=== PATIENT | male | born 1985 | race Caucasian/White ===

== ENCOUNTER 2024-11-24 11:09 | Inpatient (IN) | payer OTHER ==
[2024-11-24 11:31] VITALS: BMI 22.7
[2024-11-24] MEDS ORDERED: MAGNESIUM HYDROX 2400MG/30ML ORAL SUSPENSION 30 ML CUP PO PRN (11:45)
[2024-11-24] MEDS ORDERED: BISMUTH SUBSALICYLATE 524 MG/30 ML PO PRN (11:45)
[2024-11-24] MEDS ORDERED: NALOXONE (NARCAN) HCL 4 MG/0.1 ML SPRAY NS PRN (11:45)
[2024-11-24] MEDS ORDERED: P-EPHED 60MG/TRIPROLIDI 2.5MG TABLET PO PRN (11:45)
[2024-11-24] MEDS ORDERED: BENZOCAINE/MENTHOL (CHLORASEPTIC ) LOZENGE MM PRN (11:45)
[2024-11-24] MEDS ORDERED: DICYCLOMINE HCL 10 MG CAPSULE PO PRN (11:45)
[2024-11-24] MEDS ORDERED: IBUPROFEN 400 MG TABLET (FP) PO PRN (11:45)
[2024-11-24] MEDS ORDERED: LOPERAMIDE HCL 2 MG CAPSULE PO PRN (11:45)
[2024-11-24] MEDS ORDERED: guaiFENesin 600 MG TABLET.ER (FP) PO PRN (11:45)
[2024-11-24] MEDS ORDERED: MAG HYDROX/AL HYDROX/SIMETH 30 ML UNIT-DOSE CUP PO PRN (11:45)
[2024-11-24] MEDS ORDERED: BENZONATATE 200 MG CAPSULE PO PRN (11:45)
[2024-11-24] MEDS ORDERED: hydrOXYzine PAMOATE 25 MG CAPSULE (FP) PO PRN (11:45)
[2024-11-24] MEDS ORDERED: POLYETHYLENE GLYCOL (HEALTHYLAX) 3350 17 GM PACKET PO PRN (11:45)
[2024-11-24] MEDS: propRANOLol HCL 10 MG TABLET PO ONE (12:31)
[2024-11-24] MEDS: TRIMETHOBENZAMIDE HCL 200MG/2ML INJ IM ONE (12:31)
[2024-11-24] MEDS: BUPRENORPHINE/NALOXONE 4 MG/1 MG FILM PACKET SL SCH (12:31)
[2024-11-24] MEDS ORDERED: ACETAMINOPHEN 325 MG TABLET (FP) ONE (12:41)
[2024-11-24] MEDS: ACETAMINOPHEN 325 MG TABLET (FP) PO PRN (12:56)
[2024-11-24] MEDS: ESCITALOPRAM OXALATE 10 MG TABLET PO SCH (15:04)
[2024-11-24] MEDS: METHOCARBAMOL 500 MG TABLET PO PRN (17:23)
[2024-11-24] MEDS: IBUPROFEN 600 MG TABLET (FP) PO PRN (17:23)
[2024-11-24] MEDS: THIAMINE 100 MG TABLET PO SCH (21:56)
[2024-11-24] MEDS: diazePAM 5 MG TABLET PO PRN (21:57)
[2024-11-24] MEDS: MELATONIN 5 MG TABLETS PO SCH (22:00)
[2024-11-25] MEDS: ONDANSETRON *ODT* 4 MG TABLET SL PRN (03:50)
[2024-11-25] MEDS: BUPRENORPHINE/NALOXONE 8 MG/2 MG FILM PACKET SL ONE (05:49)
[2024-11-25 09:35] LABS: POTASSIUM 3.6 mmol/L (3.5-5.1)
[2024-11-25 09:39] LABS: HEMATOCRIT 37.4 % (35.4-49); HEMOGLOBIN 12.5 GM/dL (11.7-16.9); MCH 29.5 pg (25.7-33.7); MCHC 33.5 g/dl (32.0-35.9); MEAN CELL VOLUME 88.1 fl (80-96); MEAN PLT VOLUME 10.3 fl (7.5-11.1); PLATELET COUNT 219 10^3/uL (134-434); RBC 4.25 M/mm3 (4.00-5.60); RDW 13.1 % (11.9-15.9)
[2024-11-25 09:40] LABS: ALBUMIN 3.9 g/dl (3.4-5.0)
[2024-11-25 09:41] LABS: BLOOD UREA NITROGEN 21.5 mg/dL (7-18); CALCIUM 9.6 mg/dL (8.5-10.1)
[2024-11-25 09:43] LABS: CREATININE 1.2 mg/dL (0.55-1.3)
[2024-11-25 09:44] LABS: BILIRUBIN,TOTAL 0.8 mg/dL (0.2-1)
[2024-11-25] MEDS: PRENATAL VITAMINS W/ FOLIC ACID TABLET (FP) PO SCH (09:44)
[2024-11-25 09:45] LABS: TOT PROT 7.3 g/dl (6.4-8.2)
[2024-11-25] MEDS: BUPRENORPHINE/NALOXONE 8 MG/2 MG FILM PACKET SL SCH (13:09)
[2024-11-26] MEDS: BUPRENORPHINE/NALOXONE 8 MG/2 MG FILM PACKET SL SCH (06:01)
[2024-11-26] MEDS: LOSARTAN POTASSIUM 50 MG TABLET PO SCH (13:26)
[2024-11-26] MEDS: NALOXONE (NYS OPIOID OVERDOSE PROGRAM) 4 MG/0.1 ML SPRAY NS SCH (13:48)
[2024-11-26] MEDS: cloNIDine HCL 0.1 MG TABLET PO ONE (22:19)
[2024-11-27] MEDS ORDERED: BUPRENORPHINE/NALOXONE 8 MG/2 MG FILM PACKET SL SCH (05:00)
[2024-11-27] MEDS: BUPRENORPHINE/NALOXONE 8 MG/2 MG FILM PACKET SL SCH (05:35)
[2024-11-27] MEDS: cloNIDine HCL 0.1 MG TABLET PO ONE (06:44)
[2024-11-27 09:26] VITALS: BP 149/106; PULSE 98; RESP 18; TEMP 97.7
[2024-11-27] MEDS: LOSARTAN POTASSIUM 50 MG TABLET PO SCH (09:41)
[2024-11-27] MEDS ORDERED: LOSARTAN POTASSIUM 50 MG TABLET PO SCH (10:00)
== END 2024-11-27 11:38 | disposition home or self-care (01) | DRG 773 ==
LOC: YASAS 11:09 → Y6N 12:16
PROVIDERS: ADMIT Allergy & Immunology; ATTEND Allergy & Immunology
PROC: HZ2ZZZZ Detoxification Services for Substance Abuse Treatment (ICD-10-PCS; principal; 2024-11-24)
DX: F11.23 Opioid dependence with withdrawal (principal); F19.282 Other psychoactive substance dependence with psychoactive substance-induced sleep disorder; F19.280 Other psychoactive substance dependence with psychoactive substance-induced anxiety disorder; F32.9 Major depressive disorder, single episode, unspecified; I10 Essential (primary) hypertension; M54.50 Low back pain, unspecified; G89.29 Other chronic pain; Z88.7 Allergy status to serum and vaccine
CPT/HCPCS: 36415; 80053; 80305; 80307; 85027; 86780; 93005; 93010; Q0162

== ENCOUNTER 2025-01-07 19:59 | Inpatient (IN) | payer OTHER ==
[2025-01-07 20:31] VITALS: BMI 28.1
[2025-01-07] MEDS ORDERED: METOPROLOL TARTRATE 25 MG TABLET (FP) ONE (21:42)
[2025-01-07] MEDS ORDERED: ASPIRIN 81 MG CHEWABLE TABLETS ONE (21:52)
[2025-01-07] MEDS: ASPIRIN 81 MG CHEWABLE TABLETS PO ONE (21:55)
[2025-01-07] MEDS: METOPROLOL TARTRATE 25 MG TABLET (FP) PO ONE (21:55)
[2025-01-07] MEDS ORDERED: IBUPROFEN 400 MG TABLET (FP) PO PRN (22:07)
[2025-01-07] MEDS ORDERED: MAG HYDROX/AL HYDROX/SIMETH 30 ML UNIT-DOSE CUP PO PRN (22:07)
[2025-01-07] MEDS ORDERED: NALOXONE (NARCAN) HCL 4 MG/0.1 ML SPRAY NS PRN (22:07)
[2025-01-07] MEDS ORDERED: POLYETHYLENE GLYCOL (HEALTHYLAX) 3350 17 GM PACKET PO PRN (22:07)
[2025-01-07] MEDS ORDERED: guaiFENesin 600 MG TABLET.ER (FP) PO PRN (22:07)
[2025-01-07] MEDS ORDERED: BISMUTH SUBSALICYLATE 524 MG/30 ML PO PRN (22:07)
[2025-01-07] MEDS ORDERED: MAGNESIUM HYDROX 2400MG/30ML ORAL SUSPENSION 30 ML CUP PO PRN (22:07)
[2025-01-07] MEDS ORDERED: P-EPHED 60MG/TRIPROLIDI 2.5MG TABLET PO PRN (22:07)
[2025-01-07] MEDS ORDERED: ACETAMINOPHEN 325 MG TABLET (FP) PO PRN (22:07)
[2025-01-07] MEDS ORDERED: BENZOCAINE/MENTHOL (CHLORASEPTIC ) LOZENGE MM PRN (22:07)
[2025-01-07] MEDS ORDERED: DICYCLOMINE HCL 10 MG CAPSULE PO PRN (22:07)
[2025-01-07] MEDS ORDERED: LOPERAMIDE HCL 2 MG CAPSULE PO PRN (22:07)
[2025-01-07] MEDS ORDERED: BENZONATATE 200 MG CAPSULE PO PRN (22:07)
[2025-01-07] MEDS ORDERED: BUPRENORPHINE/NALOXONE 4 MG/1 MG FILM PACKET ONE (22:09)
[2025-01-07] MEDS: BUPRENORPHINE/NALOXONE 8 MG/2 MG FILM PACKET SL ONE (22:15)
[2025-01-07] MEDS ORDERED: METHOCARBAMOL 500 MG TABLET ONE (22:54)
[2025-01-07] MEDS ORDERED: hydrOXYzine PAMOATE 25 MG CAPSULE (FP) PO ONE (22:54)
[2025-01-07] MEDS: hydrOXYzine PAMOATE 25 MG CAPSULE (FP) PO PRN (22:58)
[2025-01-07] MEDS: METHOCARBAMOL 500 MG TABLET PO PRN (22:58)
[2025-01-07] MEDS: CEPHALEXIN MONOHYDRATE 500 MG CAPSULE (UD) PO SCH (23:55)
[2025-01-07] MEDS: IBUPROFEN 600 MG TABLET (FP) PO PRN (23:58)
[2025-01-08] MEDS: LEVOTHYROXINE NA 100 MCG TABLET (FP) PO SCH (06:02)
[2025-01-08] MEDS: BUPRENORPHINE/NALOXONE 8 MG/2 MG FILM PACKET SL ONE (06:02)
[2025-01-08] MEDS: PRENATAL VITAMINS W/ FOLIC ACID TABLET (FP) PO SCH (10:27)
[2025-01-08] MEDS: GABAPENTIN 100 MG CAPSULE PO SCH (10:27)
[2025-01-08] MEDS: LOSARTAN POTASSIUM 50 MG TABLET PO SCH (10:27)
[2025-01-08] MEDS: NYSTATIN 500,000 UNITS/5 ML SUSPENSION PO SCH (10:29)
[2025-01-08] MEDS: ONDANSETRON *ODT* 4 MG TABLET SL PRN (20:40)
[2025-01-08] MEDS: MELATONIN 5 MG TABLETS PO SCH (21:16)
[2025-01-08] MEDS: THIAMINE 100 MG TABLET PO SCH (21:17)
[2025-01-09] MEDS: BUPRENORPHINE/NALOXONE 12 MG-3 MG SL FILM PACKET SL ONE (06:05)
[2025-01-09 10:23] VITALS: BP 138/87; PULSE 104; RESP 16; TEMP 98.4
[2025-01-09 11:45] LABS: HEMATOCRIT 36.9 % (35.4-49); HEMOGLOBIN 12.7 GM/dL (11.7-16.9); MCH 29.8 pg (25.7-33.7); MCHC 34.3 g/dl (32.0-35.9); MEAN CELL VOLUME 86.7 fl (80-96); MEAN PLT VOLUME 10.7 fl (7.5-11.1); PLATELET COUNT 246 10^3/uL (134-434); RBC 4.25 M/mm3 (4.00-5.60); RDW 13.3 % (11.9-15.9); WHITE BLOOD COUNT 9.6 K/mm3 (4.0-10.0)
[2025-01-09 12:08] LABS: POTASSIUM 3.8 mmol/L (3.5-5.1)
[2025-01-09 12:15] LABS: BLOOD UREA NITROGEN 16.8 mg/dL (7-18); CALCIUM 9.5 mg/dL (8.5-10.1)
[2025-01-09 12:16] LABS: ALBUMIN 3.8 g/dl (3.4-5.0)
[2025-01-09 12:21] LABS: BILIRUBIN,TOTAL 0.3 mg/dL (0.2-1)
== END 2025-01-09 10:41 | disposition home or self-care (01) | DRG 773 ==
LOC: YASAS 19:59 → Y6N 22:29
PROVIDERS: ADMIT Allergy & Immunology; ATTEND Allergy & Immunology
PROC: HZ2ZZZZ Detoxification Services for Substance Abuse Treatment (ICD-10-PCS; principal; 2025-01-07)
DX: F11.20 Opioid dependence, uncomplicated (principal); F19.280 Other psychoactive substance dependence with psychoactive substance-induced anxiety disorder; F19.282 Other psychoactive substance dependence with psychoactive substance-induced sleep disorder; I10 Essential (primary) hypertension; M54.50 Low back pain, unspecified; G89.29 Other chronic pain; Z88.7 Allergy status to serum and vaccine
CPT/HCPCS: 36415; 80053; 80305; 80307; 85027; 86780; 93005; 93010; Q0162